=== PATIENT | female | born 1965 | race Hispanic/Latino ===

== ENCOUNTER → 2017-12-03 | Day surgery (SDC) | payer OTHER ==
--- NOTE | 2017-12-01 18:06 | History & Physical Pre-Op ---
General Information and HPI History of Present Illness: Patient is a 52-year-old female with new onset postmenopausal bleeding is heavy. Allergies/Medications Allergies: Coded Allergies: No Known Allergies (10/01/17) Home Med list Ibuprofen 800 MG TABLET 1 TAB PO TID PRN pain Ondansetron (Zofran Odt) 4 MG TAB.RAPDIS 1 TAB SL TID PRN NAUSEA Oxycodone HCl/Acetaminophen (Percocet 5-325 MG Tablet) 5 MG-325 MG TABLET 1 TAB PO 4XDP PRN PAIN six...[id number] Past History Medical History Neurological: NONE EENT: NONE Cardiovascular: hyperlipidemia Respiratory: NONE Gastrointestinal: NONE Hepatic: NONE Renal: NONE Musculoskeletal: NONE Psychiatric: NONE Endocrine: diabetes Surgical History Pertinent Surgical History: non-contributory Review of Systems Review of Systems Constitutional: Reports: no symptoms. EENTM: Reports: no symptoms. Cardiovascular: Reports: no symptoms. Respiratory: Reports: no symptoms. GI: Reports: no symptoms. Genitourinary: Reports: no symptoms. Musculoskeletal: Reports: no symptoms. Skin: Reports: no symptoms. Neurological/Psychological: Reports: no symptoms. Hematologic/Endocrine: Reports: no symptoms. Immunologic/Allergic: Reports: no symptoms. All Other Systems: Reviewed and Negative Exam & Diagnostic Data Physical Exam: HEENT: Normocephalic atraumatic Chest: Clear to auscultation bilaterally Cardiovascular: Normal S1-S2 Abdomen: Soft nontender Pelvic: Deferred OR Extremities: No clubbing cyanosis or edema Assessment/Plan Assessment/Plan: Postmenopausal bleeding Plan: D&C hysteroscopy As Ranked By This Provider Problem List: 1. Postmenopausal bleeding
[~2017-12-03] VITALS: Ht 177.8 cm; Wt 79.8 kg
[~2017-12-03] MED LIST: IBUPROFEN800 M1 PO; PERCOCET 5-3251 EACH PO; ZOFRAN ODT4 M1 SL
--- NOTE | 2017-12-03 17:53 | Operative Report ---
Operative/Inv Procedure Report Surgery Date: 12/03/17 Name of Procedure: D&C hysteroscopy Pre-Operative Diagnosis: Postmenopausal bleeding Post-Operative Diagnosis: Same Estimated Blood Loss: scant Surgeon/Staying Machine Operator: Jah Prado MD Anesthesia: moderate sedation Operative/Procedure Note Note: The patient was taken to the operating room placed on the OR table in the dorsal supine position. She was given adequate anesthesia and repositioned in modified dorsal lithotomy. She is prepped and draped in usual sterile fashion. A weighted speculum was inserted into the vagina with the help of a Omaira retractor a single-toothed tenaculum was attached to the anterior lip of the cervix. The cervix was then injected with 1% lidocaine with epinephrine to have cc in each quadrant. An endocervical curettage was performed revealing a small amount of tissue. The uterus is then sounded to 7 cm anteverted. And dilated to accommodate the hysteroscope. The hysteroscope was placed into the fundus and the saline infusion was activated. The christine of the uterus were atrophic and no polyps or fibroids were noted. The scope was removed and the cervix was further dilated and sharp curettage followed revealing an mild amount of tissue. At the end of the procedure hemostasis was good. The instruments removed and the patient was awakened and sent to recovery in good condition. All needle, sponge, and instrument counts were correct at the end of the procedure 2
== END ==
LOC: STS 00:46
DX: N95.0 Postmenopausal bleeding (principal); E66.9 Obesity, unspecified; Z68.34 Body mass index [BMI] 34.0-34.9, adult
CPT/HCPCS: 81025